=== PATIENT | female | born 1940 | race Caucasian/White ===

== ENCOUNTER 2022-10-21 10:39 | Outpatient (REF) | payer MEDICARE, SELFPAY ==
[2022-10-21 13:50] LABS: MANUAL DIFF FLAG NO
[2022-10-21 14:06] LABS: Basophils Percent Auto 0.6 % (0-2); Eosinophils Absolute Auto 0.2 X10*3/uL (0.0-0.4); Eosinophils Percent Auto 3.5 % (0-4); Hematocrit 42.5 % (37.0-47.0); Hemoglobin 14.3 g/dl (12.0-16.0); Imm Gran Abs Auto 0.03 X10*3/uL (0.00-0.03); Imm Gran Pct Auto 0.6 % (0.0-0.4); Lymphocytes Absolute Auto 1.2 X10*3/uL (1.2-4.9); Lymphocytes Percent Auto 22.5 % (20-40); Mean Corpuscular HGB Conc 33.6 g/dl (31.0-35.0); Mean Corpuscular Hemoglobin 32.9 pg (27.0-33.0); Mean Corpuscular Volume 97.9 fL (80.0-98.0); Mean Platelet Volume 10.5 fL (9.4-12.3); Monocytes Absolute Auto 0.4 X10*3/uL (0.1-1.2); Monocytes Percent Auto 7.8 % (2-11); Neutrophils Absolute Auto 3.3 x10*3/uL (2.0-8.3); Platelet Count 273 X10*3/uL (160-400); Red Blood Count 4.34 X10*6/uL (4.20-5.50); White Blood Count 5.1 X10*3/uL (4.8-10.8)
[2022-10-21 14:37] LABS: Alanine Aminotransferase 15 U/L (0-31); Alkaline Phosphatase 76 U/L (39-117); Anion Gap 14 (12-20); Aspartate Amino Transferase 21 U/L (5-31); Bilirubin Total 1.2 mg/dL (0.0-1.0); Blood Urea Nitrogen 21 mg/dL (9-16); Calcium 9.6 mg/dL (8.4-10.2); Carbon Dioxide 28 mmol/L (22-29); Chloride 104 mmol/L (96-108); Cholesterol 221 mg/dL; Estimated Glomerular Filt Rate > 60; Glucose Fasting 107 mg/dL (60-99); HDL Cholesterol 78 mg/dL; LDL Cholesterol Calculated 131 mg/dl; Potassium 3.7 mmol/L (3.3-5.1); Sodium 142 mmol/L (135-145); Total Protein 6.6 g/dL (6.5-8.0); Triglycerides 62 mg/dL
== END 2022-10-21 10:40 | disposition home or self-care (01) ==
LOC: HO.MANLDS 10:39
PROVIDERS: Visit Provider Physician Assistant
DX: I10 Essential (primary) hypertension (principal)
CPT/HCPCS: 36415; 80053; 80061; 85025

== ENCOUNTER 2023-10-28 08:46 | Outpatient (REF) | payer MEDICARE, SELFPAY ==
[2023-10-28 13:12] LABS: MANUAL DIFF FLAG NO
[2023-10-28 13:40] LABS: Basophils Percent Auto 0.3 % (0-2); Eosinophils Absolute Auto 0.4 X10*3/uL (0.0-0.4); Eosinophils Percent Auto 5.1 % (0-4); Hematocrit 44.2 % (37.0-47.0); Hemoglobin 14.4 g/dl (12.0-16.0); Imm Gran Abs Auto 0.02 X10*3/uL (0.00-0.03); Imm Gran Pct Auto 0.3 % (0.0-0.4); Lymphocytes Percent Auto 14.5 % (20-40); Mean Corpuscular HGB Conc 32.6 g/dl (31.0-35.0); Mean Corpuscular Hemoglobin 32.4 pg (27.0-33.0); Mean Corpuscular Volume 99.3 fL (80.0-98.0); Mean Platelet Volume 10.2 fL (9.4-12.3); Monocytes Absolute Auto 0.5 X10*3/uL (0.1-1.2); Monocytes Percent Auto 7.6 % (2-11); Neutrophils Absolute Auto 5.1 x10*3/uL (2.0-8.3); Neutrophils Percent Auto 72.2 % (45-73); Platelet Count 288 X10*3/uL (160-400); Red Blood Count 4.45 X10*6/uL (4.20-5.50); Red Cell Distribution Width 12.6 % (11.0-16.0); White Blood Count 7.1 X10*3/uL (4.8-10.8)
[2023-10-28 14:05] LABS: Alanine Aminotransferase 18 U/L (0-31); Albumin Level 4.1 g/dL (3.5-5.0); Alkaline Phosphatase 75 U/L (39-117); Anion Gap 12 (12-20); Aspartate Amino Transferase 23 U/L (5-31); Bilirubin Total 0.7 mg/dL (0.0-1.0); Blood Urea Nitrogen 15 mg/dL (9-16); Calcium 9.6 mg/dL (8.4-10.2); Carbon Dioxide 30 mmol/L (22-29); Chloride 105 mmol/L (96-108); Cholesterol 214 mg/dL (<200); Estimated Glomerular Filt Rate > 60; Glucose Random 95 mg/dL (60-115); HDL Cholesterol 90 mg/dL (>40); LDL Cholesterol Calculated 112 mg/dL (<100); Potassium 3.9 mmol/L (3.3-5.1); Sodium 143 mmol/L (135-145); Total Protein 7.1 g/dL (6.5-8.0); Triglycerides 64 mg/dL (<150)
== END 2023-10-28 08:47 | disposition home or self-care (01) ==
LOC: HO.MANLDS 08:46
PROVIDERS: Visit Provider Physician Assistant
DX: I10 Essential (primary) hypertension (principal)
CPT/HCPCS: 36415; 80053; 80061; 85025

== ENCOUNTER 2023-12-24 09:57 | Outpatient (REF) | payer MEDICARE, SELFPAY | END 2023-12-24 09:58 | disposition home or self-care (01) | LOC: HO.LNP 09:57 | PROVIDERS: Visit Provider Physician Assistant | DX: Z13.89 Encounter for screening for other disorder (principal) ==

== ENCOUNTER 2023-12-24 19:47 | Outpatient (REF) | payer MEDICARE, SELFPAY | END 2023-12-24 19:48 | disposition home or self-care (01) | LOC: HO.LNP 19:47 | PROVIDERS: Visit Provider Physician Assistant | DX: L02.818 Cutaneous abscess of other sites (principal) | CPT/HCPCS: 87070; 87205 ==

== ENCOUNTER 2024-12-15 09:27 | Outpatient (REF) | payer MEDICARE, SELFPAY ==
--- OUTSIDE RECORDS SUMMARY | 2024-12-15 10:11 | XMS_ITS | Continuity of Care Document ---
Author Organization [place] - [facility], [facility] Address [address] [place] [address] [place] [address] Assessment No assessment recorded. Plan of Treatment Reminders Order Date Submit Date Provider Last Modified By Organization Details Last Modified Time Details Appointments FOLLOW UP 15 2024 09:00A M JADON HANSEN Not available Not available Not available Lab uric acid, serum or plasma 2024 025 [facility], [address] [place] [address], [place], [address], 12/13/2024 10:57:06 CMP, serum or plasma 2024 025 [facility], [address] [place] [address], [place], [address], 12/13/2024 10:57:06 CBC w/ auto diff 2024 025 [facility], [address] [place] [address], [place], [address], 12/13/2024 10:57:06 Referral None recorded . Procedures None recorded . Surgeries None recorded . Imaging XR, foot, 3 or more view 2024 025 [facility], [facility] [place], [address], 12/13/2024 13:55:27 Medication Orders None recorded . Patient TargetsNo targets recorded. Patient InstructionsNo instructions recorded. Reason for Referral None Reported. Problems Name Problem SNOMED Code Status Onset Date Resolution Date Notes Provider Name and Address Organization Details Recorded Time Essential hypertens ion 53148570 Active 2021 Not Available [facility] 3 10:52:07 Rupture of rotator cuff of right shoulder 529023016109 17778 Active 2021 right Not Available [facility] 3 10:52:07 Diverticu losis of colon 943088136 Active 2021 only one flare up Not Available [facility] 3 10:52:07 Vitamin deficienc y 47644693 Active 2021 Not Available [facility] 3 10:52:07 Bunion 954291751 Active 2021 Not Available [facility] 3 10:52:07 Hammer toe 162279819 Active 2021 Not Available [facility] 3 10:52:07 Hammer toe 434762273 Active 2021 Not Available [facility] 3 10:52:07 Pain in right thumb 092740420479 9102 Active 2021 Not Available [facility] 3 10:52:07 Hordeolum externum of upper eyelid of right eye 264276764048 100 Active 2021 Not Available [facility] 3 10:52:07 Fracture of multiple ribs 7873318 Active 2022 JADON HANSEN [address] [place], [address], [facility] 3 15:24:07 Elderly fall 096600855 Active 2022 JADON HANSEN [address] [place], [address], [facility] 3 15:24:53 Onycholys is due to fungal infection of nail 745224337 Active 2023 JADON HANSEN [address] [place], [address], [facility] 4 09:26:31 Acquired hammer toe of right foot 433328456515 9105 Active 2023 JADON HANSEN [address], [place], , [facility] 4 09:30:09 Inflammat ion of clitoris 412383856 Active 2023 JADON HANSEN [address] [place] [address], , [facility] 4 09:50:18 Phimosis clitoridi s 863745384 Active 2023 JADON HANSEN [address] [place] [address], , [facility] 4 09:50:44 Abscess of skin and/or subcutane ous tissue 96360845 Active 2023 JADON HANSEN [address] [place] [address], , [facility] 4 09:52:43 Pain in left thumb 086078691263 9100 Active 2023 JADON HANSEN [address] [place] [address], , [facility] 4 09:40:13 Constipat ion 08054961 Active 2024 JADON HANSEN [address] [place] [address], , [facility] 5 09:16:43 Pain in right foot 976747984180 107 Active 2024 JADON HANSEN [address] [place] [address], , [facility] 5 10:47:42 Bunion 513148966 Active 2024 JADON HANSEN [address] [place] [address], , [facility] 5 10:51:41 Osteoarth ritis 907163395 Active 2024 JADON HANSEN [address] [place] [address], , [facility] 5 10:51:51 Problem Notes None recorded. Medical Equipment None Reported. Allergies Allergen ID Allergen Name Allergen Category Reaction Reaction Severity Criticality Documentation Date Start Date Code Code System Note Provider Name and Address Organization Details Recorded Time 6042 Substance with sulfonami de structure and antibacte rial mechanism of action (substanc e) medicatio n Not available Not available Not available 05/08/2022 27268 8003 SNOMED HIVES Gali reid [facility] 2 10:33:54 6043 procaine hydrochlo ride medicatio n swelling Not available Not available 05/08/2022 74000 8 RxNorm Gali reid [facility] 2 10:33:33 6044 meloxicam medicatio n rash Not available Not available 05/08/2022 74290 RxNorm Gali De La Garza [facility] 2 10:33:43 7289 Voltaren medicatio n Not available Not available Not available 04/28/202335711 6 RxNorm rash JADON HANSEN [address] [place] [address], [address] [place] [address] [facility] 3 09:11:43 Medications Name Sig Start Date Stop Date Status Note LastModified by Organization Details LastModified Time prednisone 20 mg tablet TAKE 1 TABLET BY MOUTH EVERY DAY FOR 10 DAYS 01/26 completed Not Available Not Available Not Available atenolol 25 mg tablet TAKE 1 AND 1/2 TABLETS BY MOUTH EVERY DAY active Not Available Not Available No t Available terbinafine HCl 250 mg tablet TAKE 1 TABLET BY MOUTH EVERY DAY FOR 30 DAYS active Not Available Not Available No t Available cephalexin 500 mg capsule TAKE 1 CAPSULE BY MOUTH EVERY 6 HOURS FOR 10 DAYS 01/26 completed Not Available Not Available Not Available erythromyci n 5 mg/gram (0.5 %) eye ointment APPLY 1 CM RIBBON INTO THE LOWER CONJUNCTI ROCÍO SAC(S) IN THE AFFECTED EYE(S) 3 TIMES PER DAY 10/30 completed Not Available Not Available Not Available clotrimazol e-betametha sone 1 %-0.05 % topical cream APPLY TO AFFECTED AREA TWICE A DAY FOR 2 WEEKS TOPICALLY IN THE MORNING AND EVENING 12/15 completed Not Available Not Available Not Available ibuprofen 400 mg tablet TAKE 1 TABLET BY MOUTH THREE TIMES A DAY WITH FOOD OR MILK 01/26 completed Not Available Not Available Not Available hydrochloro thiazide 25 mg tablet TAKE 1 TABLET BY MOUTH EVERY DAY active Not Available Not Available No t Available gabapentin 100 mg capsule TAKE 1 CAPSULE BY MOUTH THREE TIMES A DAY 10/13 completed Not Available Not Available Not Available oxycodone 5 mg tablet TAKE 1 TABLET BY MOUTH EVERY 6 HOURS NEEDED FOR SEVERE PAIN 10/26 completed Not Available Not Available Not Available nitrofurant oin monohydrate /macrocryst als 100 mg capsule TAKE 1 CAPSULE BY MOUTH 2 TIMES A DAY FOR 7 DAYS. TAKE WITH FOOD, YOGURT, PROBIOTIC S. FINISH ALL. 05/08 completed Not Available Not Available Not Available magnesium daily active OTC Not Available Not Deb ilable Not Available multivitami n active Not Available Not Available Not Available Eliquis 5 mg tablet 01/26 completed Not Available Not Available Not Available aspirin 81 mg capsule Take 1 capsule every day by oral route. 01/26 completed Not Available Not Available Not Available Vitals Date Recorded Body height Body mass index (BMI) Body weight Heart rate Oxygen saturation Oxygen saturation in Arterial blood by Pulse oximetry Systolic blood pressure Diastolic blood pressure Provider Name and Address Organization Details Last Updated DateTime 5 149.86 cm 27.6 kg/m2 39718.4 4 g 56 /min 98 % 98 % 144 mm[Hg] 92 mm[Hg] Danae Vega [facility] 5 10:33:47 Social History Question Answer Notes LastModified by Organizat ion Details LastModified Time Tobacco Smoking Status Never Smoker Gali reid [facility] 05/08/2022 10:30:06 What Was The Date Of Your Most Recent Tobacco Screening? 12/13/2024 [email or web address] Information not available 12/13/2024 Do You Or Have You Ever Used Any Other Forms Of Tobacco Or Nicotine? No Information not available 10/30/2022 Sex: Unknown Functional Status None recorded. Mental Status None recorded. Family History Nothing Reported. Medical History No medical history recorded. Gynecological HistoryNo gynecological history recorded. Obstetrics History GPAL:G 0 P 0 0 0 0 Immunizations Vaccine Type Date Status Note Provider Nam e and Address Organization Details Recorded Time COVID-19, mRNA, LNP-S, PF, 30 mcg/0.3 mL dose 09/21/19 [facility] 08:07:17 COVID-19, mRNA, LNP-S, PF, 30 mcg/0.3 mL dose 10/14/19 [facility] 08:07:24 Influenza, split virus, quadrivalent, preservative 08/20/19 22 [facility] 05[facility]22 08:07:39 Influenza, split virus, quadrivalent, preservative 04/27/20 20 [facility] 05[facility]08[facility]22 08:07:46 Influenza, split virus, quadrivalent, preservative 06/02/20 19 completed Gali De La Garza [facility] 05/08/2022 08:07:55 pneumococcal polysaccharide PPV23 05/09/20 08 completed Gali De La Garza [facility] 05/08/2022 08:08:28 Pneumococcal conjugate PCV 13 12/07/19 15 completed Gali De La Garza [facility] 05/08/2022 08:08:53 Td (adult) 04/17/20 10 completed Gali De La Garza [facility] 05/08/2022 08:09:38 Tdap 10/31/19 17 completed Gali De La Garza [facility] 05/08/2022 08:09:53 influenza, intradermal, quadrivalent, preservative free 06/06/20 22 completed Rylie Gardner [facility] 06/10/2022 09:28:17 influenza, unspecified formulation 04/24/20 23 completed Savanna Almanza [facility] 04/28/2023 08:16:56 influenza, unspecified formulation 04/22/20 24 completed Danae Vega [facility] 04/26/2024 08:03:09 Respiratory syncytial virus (RSV) MAB, unspecified 04/22/20 24 completed Danae Vega [facility] 04/26/2024 08:03:16 Respiratory syncytial virus (RSV) MAB, unspecified 04/13/20 24 completed JADON HANSEN [address] [place], [address], [facility] 10/13/2024 09:14:07 influenza, unspecified formulation 04/13/20 completed JADON HANSEN [address] [place], [address], [facility] 10/13/2024 09:14:26 Past Encounters Encounter ID Performer Location Encounter Start Date Encounter Closed Date Diagnosis/Indication Diagnosis SNOMED-CT Code Diagnosis ICD10 Code Diagnosis Note [id number] Leo Evangelista [facility] [address] [address] 12/13/2024 10:23:27 12/13/2024 13:55:26 Depression screening 034056242 Z13.31 negative Pain in right foot 49400 85195 14271 M79.671 will fu with XR and lab work Bunion 901785388 M21.61 1 stable Osteoarthritis 270701722 M15.0 probably a combinatio n of the OA and the bunion causing more paincannot r/o a fx given the severity of the bunion and the weight distributi on of the foot Health Concerns Section Related Observation LastModified by Organization Detai ls LastModified Time None Recorded Concern Status LastModified by Organization Details LastModified Time None Recorded Payers Encounter Date Sequence Insurance Name Policy Number Policy Moise Covered Member ID Moise Member ID Guarantor Name 12/13/2024 2 [facility] Irish Castellanos [id number] Irish Castellanos 12/13/2024 1 [place]: [employer] Irish Castellanos [id number] Irish Castellanos Notes Date Note Type Note Provider Name a nd Address Organization Details Recorded Time 12/13/2024 text/html f/u med check the patient reports that she is having right foot pain and ankle painthe patient has a hx of arthritis, she noticed a few days ago that it started to hurt more than usualpain with walking, putting weight on itthe patient reports that ulcer is all cleared up and the toe fungus is improving she has hx of pretty sig bunion and hammer toes causing sig lynne deformity of the bone recommended updated imaging and check for uric acid build uppt agrees, given the paper orders and will go tomorrow JADON HANSEN [address] [place] [address], [place], [address], [facility] 12/13/2024 10:56:47 OBGyn Episode No OBEpisode recorded.
--- OUTSIDE RECORDS SUMMARY | 2024-12-15 10:12 | XMS_ITS | Data Portability ---
Author Organization [facility] Home Service Address [address] [place] [address] Assessment No assessment recorded. Plan of Treatment Reminders Order Date Submit Date Provider Last Modified By Organization Details Last Modified Time Details Appointments FOLLOW UP 15 2024 09:00A M JADON HANSEN Not available Not available Not available Lab uric acid, serum or plasma 2024 025 [facility], [address] [place] [address], [id number], 12/13/2024 10:57:06 CMP, serum or plasma 2024 025 [facility], [address] [place] [address], [place], [address], 12/13/2024 10:57:06 CBC w/ auto diff 2024 025 [facility], [address] [place] [address], [id number], 12/13/2024 10:57:06 Referral None recorded. Procedures None recorded. Surgeries None recorded. Imaging XR, foot, 3 or more view 2024 025 [email or web address] [facility], [address] [place], [address], 12/13/2024 13:55:27 XR, hand, 3 or more view 2023 024 [email or web address] [facility], [address] [place], [address], 05/04/2024 14:43:08 Medication Orders hydrochlo rothiazid e 25 mg tablet 2023 024 [facility]acy #2024, [address] [place], [address], 07/27/2024 09:36:42 atenolol 25 mg tablet 2023 024 [facility] #[id number], [address] [place], [address], 07/27/2024 09:36:42 Patient TargetsNo targets recorded. Patient InstructionsNo instructions recorded. Reason for Referral None Reported. Results Created Date Observation Date Name Description Value Unit Range Abnormal Flag Note LastModifiedBy Organization Detail LastModifiedTime 05/05/20 24 05/05/2024 XR, hand No observ ation record ed. [email or web address] Not Available 2023 14:13:46 Result Notes None recorded. Problems Name Problem SNOMED Code Status Onset Date Resolution Date Notes Provider Name and Address Organization Details Recorded Time Essential hypertens ion 15346287 Active 2021 Not Available [facility] 3 10:52:07 Rupture of rotator cuff of right shoulder 472972414505 67591 Active 2021 right Not Available [facility] 3 10:52:07 Diverticu losis of colon 311631298 Active 2021 only one flare up Not Available [facility] 3 10:52:07 Vitamin deficienc y 87763065 Active 2021 Not Available [facility] 3 10:52:07 Bunion 226731803 Active 2021 Not Available [facility] 3 10:52:07 Hammer toe 030743520 Active 2021 Not Available [facility] 3 10:52:07 Hammer toe 945666368 Active 2021 Not Available [facility] 3 10:52:07 Pain in right thumb 637740313409 9102 Active 2021 Not Available [facility] 3 10:52:07 Hordeolum externum of upper eyelid of right eye 340941098669 100 Active 2021 Not Available [facility] 3 10:52:07 Fracture of multiple ribs 7940593 Active 2022 JADON HANSEN [address] [place] [address], [address], [facility] 3 15:24:07 Elderly fall 381504812 Active 2022 JADON HANSEN [address] [place] [address], [address], [facility] 3 15:24:53 Onycholys is due to fungal infection of nail 315583576 Active 2023 JADON HANSEN [address] [place] [address], [address], [facility] 4 09:26:31 Acquired hammer toe of right foot 500040553989 9105 Active 2023 JADON HANSEN [address] [place] [address], [address], [facility] 4 09:30:09 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 JADON HANSEN [address] [place] [address], [address], [facility] 4 09:50:18 Phimosis clitoridi s 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 Active 2023 JADON HANSEN [address] [place] [address], [address], [facility] 4 09:50:44 Abscess of skin and/or subcutane ous tissue 83415420 Active 2023 JADON HANSEN [address] [place] [address], [address], [facility] 4 09:52:43 Pain in left thumb 398902380513 9100 Active 2023 JADON HANSEN [address] [place] [address], [address], [facility] 4 09:40:13 Constipat ion 17681922 Active 2024 JADON HANSEN [address] [place], [address], [facility] 5 09:16:43 Pain in right foot 825626014352 107 Active 2024 JADON HANSEN [address] [place], [address], [facility] 5 10:47:42 Bunion 093695019 Active 2024 JADON HANSEN [address] [place] [address], [address], [facility] 5 10:51:41 Osteoarth ritis 934795362 Active 2024 JADON HANSEN [address] [place] [address], [address], [facility] 5 10:51:51 Problem Notes None recorded. Procedures Surgical History None recorded. Imaging Results Imaging Date Name Status LastModified by Organiz ation Details LastModified Time 05/05/2024 XR, hand completed Information no t available 06/04/2024 14:13:46 Procedure Notes None recorded. Medical Equipment None Reported. Allergies Allergen ID Allergen Name Allergen Category Reaction Reaction Severity Criticality Documentation Date Start Date Code Code System Note Provider Name and Address Organization Details Recorded Time 6042 Substance with sulfonami de structure and antibacte rial mechanism of action (substanc e) medicatio n Not available Not available Not available 05/08/2022 85503 8003 [facility]ED [facility] 10:[facility]54 6043 procaine hydrochlo ride medicatio n swelling Not available Not available 05/08/2022 20543 8 [facility] 2 10:33:33 6044 meloxicam medicatio n rash Not available Not available 05/08/2022 00568 RxNorm Gali reid [facility] 2 10:33:43 7289 Volttraceyn medicatio n Not available Not available Not available 04/28/2023 6 RxNorm rash JADON HANSEN [address] [place], [address] , [facility] 3 09:11:43 Medications Name Sig [...] and Address Organization Details Last Updated DateTime 4 149.86 cm 26.7 kg/m2 66326.1 9 g 63 /min 98 % 98 % 140 mm[Hg] 88 mm[Hg] JADON HANSEN [address] [place] [address], [address] [place] [address] [facility] 4 09:28:40 Date Recorded Body height Body mass index (BMI) Body weight Heart rate Oxygen saturation Oxygen saturation in Arterial blood by Pulse oximetry Systolic blood pressure Diastolic blood pressure Provider Name and Address Organization Details Last Updated DateTime 4 149.86 cm 26.9 kg/m2 65238.7 9 g 61 /min 98 % 98 % 132 mm[Hg] 88 mm[Hg] Danae Vega [facility] 4 09:31:44 Date Recorded Body height Body mass index (BMI) Body weight Heart rate Oxygen saturation Oxygen saturation in Arterial blood by Pulse oximetry Systolic blood pressure Diastolic blood pressure Provider Name and Address Organization Details Last Updated DateTime 4 149.86 cm 27.1 kg/m2 73019.3 8 g 66 /min 97 % 97 % 148 mm[Hg] 80 mm[Hg] Yessenia Boone [facility] 4 09:27:52 Date Recorded Body height Body mass index (BMI) Body weight Heart rate Oxygen saturation Oxygen saturation in Arterial blood by Pulse oximetry Systolic blood pressure Diastolic blood pressure Provider Name and Address Organization Details Last Updated DateTime 5 149.86 cm 27 kg/m2 83054.6 6 g 66 /min 98 % 98 % 124 mm[Hg] 72 mm[Hg] Desmond Garcia [facility] 5 09:07:35 Date Recorded Body height Body mass index (BMI) Body weight Heart rate Oxygen saturation Oxygen saturation in Arterial blood by Pulse oximetry Systolic blood pressure Diastolic blood pressure Provider Name and Address Organization Details Last Updated DateTime 5 149.86 cm 27.6 kg/m2 62471.4 4 g 56 /min 98 % 98 % 144 mm[Hg] 92 mm[Hg] Danae Vega [facility] 5 10:33:47 Social History Question Answer Notes LastModified by Organizat ion Details LastModified Time Tobacco Smoking Status Never Smoker Gali reid [facility] 05/08/2022 10:30:06 What Was The Date Of Your Most Recent Tobacco Screening? 12/13/2024 Information not available 12/13/2024 Do You Or Have You Ever Used Any Other Forms Of Tobacco Or Nicotine? No [email or web address] Information not available 10/30/2022 Sex: Unknown Functional [...] mcg/0.3 mL dose 09/21/19 21 completed Gali reid [facility] 05/08/2022 08:07:17 COVID-19, mRNA, LNP-S, PF, 30 mcg/0.3 mL dose 10/14/19 21 completed Gali reid [facility] 05/08/2022 08:07:24 Influenza, split virus, quadrivalent, preservative 08/20/19 22 completed Gali reid [facility] 05/08/2022 08:07:39 Influenza, split virus, quadrivalent, preservative 04/27/20 20 completed Gali reid [facility] 05/08/2022 08:07:46 Influenza, split virus, quadrivalent, preservative 06/02/20 19 completed Gali reid [facility] 05/08/2022 08:07:55 pneumococcal polysaccharide PPV23 05/09/20 08 [facility]22 08:08:28 Pneumococcal conjugate PCV 13 12/07/19 15 [facility]/08[facility]2022 08:08:53 Td (adult) 04/17/20 10 [facility] 05/08/2022 08:09:38 Tdap 10/31/19 17 completed [facility] 05/08/2022 08:09:53 influenza, intradermal, quadrivalent, preservative free 06/06/20 22 [facility]10/2022 09:28:17 influenza, unspecified formulation 04/24/20 23 completed Savanna Almanza [facility] 04/28/2023 08:16:56 influenza, unspecified formulation 04/22/20 24 completed [facility] 04/26/2024 08:03:09 Respiratory syncytial virus (RSV) MAB, unspecified 04/22/20 24 completed [facility] 04/26/2024 08:03:16 Respiratory syncytial virus (RSV) MAB, unspecified 04/13/20 24 completed JADON HANSEN [address] [place] [address], [address], [facility] 10/13/2024 09:14:07 influenza, unspecified formulation 04/13/20 24 completed JADON HANSEN [address] [place] [address], [address], [facility] 10/13/2024 09:14:26 Past Encounters Encounter ID Performer Location Encounter Start Date Encounter Closed Date Diagnosis/Indication Diagnosis SNOMED-CT Code Diagnosis ICD10 Code Diagnosis Note [id number] Leo Evangelista DO [facility] [address] [facility],[place] [address] 05/08/2022 10:23:00 05/08/2022 16:00:01 Essential hypertension 88163604 I10 the patient needs refillsHTN is stable Diverticul osis of colon 475832726 K57.30 stable Rupture of rotator cuff of right shoulder 4953098689 9332889 M75.111 doing PT Vitamin deficiency 73664 002 E56.9 stable Bunion 671852212 M21.61 9 stable Hammer toe 881364126 M20 .40 stable Pain in right thumb 1076 610344 749897 M79.644 will fu with hand surgeon referral to previous surgeon [id number] Leo Evangelista [facility] [address] [facility] [address] [address] 10/30/2022 09:24:48 10/30/2022 10:59:12 Essential hypertension 11078527 I10 all set with refillsHTN is stable with recheck Pain in right thumb 1076 479415 412733 M79.644 can also try diclofenac gel on her thumbworke d really well for her foot [id number] Leo Evangelista [facility] [address] [facility] [address] [address] 04/28/2023 08:57:54 04/28/2023 10:13:54 Essential hypertension 72404472 I10 all set with refillsHTN is stable with recheck Vitamin deficiency 30096 002 E56.9 stable [id number] Leo Evangelista [facility] [address] [facility] [address] [address] 06/02/2023 14:56:05 06/02/2023 16:50:14 Fracture of multiple ribs 0122246 S22.43XD is not needing the oxycodone Elderly fall 315940742 R 29.6 caught on her foot [id number] Leo Evangelista [facility] [address] [facility] [address] [address] 10/27/2023 09:10:21 10/27/2023 09:47:16 Onycholysis due to fungal infection of nail 205423582 L60.1 will set up with dual topical and oral treatment Acquired h ammer toe of right foot 7070091283 175977 M20.41 will let me know if she would 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 [address] 12/16/2023 14:21:38 12/17/2023 09:39:53 Depression screening 453585792 Z13.31 stable Essential hypertension 94113070 I10 all set with refillsHTN is stable with recheck [id number] Leo Evangelista [facility] [address] [facility] [address] [address] 12/24/2023 09:22:19 12/24/2023 13:49:23 Inflammation of clitoris 332274767 N76.2 fu friday for recheck Phimosis clitoridis 1098 84427 N90.89 short course, knows about effects on BP Abscess of skin and/or subcutaneous tissue 44092808 L02.818 will start on abx and prednisone short course of sudafed for the swelling of her clitoris and send out wound culture [id number] Leo Evangelista [facility] [address],[place] [address] 12/26/2023 13:53:56 12/29/2023 13:29:17 Abscess of skin and/or subcutaneous tissue 86495485 L02.818 improving Phimosis clitoridis 1098 65003 N90.89 improving [id number] Leo Evangelista [facility] [address] [facility] [address] 01/27/2024 09:22:13 01/27/2024 10:08:41 Depression screening 034087504 Z13.31 stable At low risk for fall 439 238498 Z91.81 low risk factor Essential hypertension 99777403 I10 stable with recheck [id number] Leo Evangelista [facility] [address] [facility] [address] [address] 05/04/2024 09:22:30 05/04/2024 14:43:08 Pain in left thumb 7499862752 347401 M79.645 still has deformity from the fall to her thumb Essential hypertension 56835267 I10 stable with recheck [id number] Leo Evangelista [facility] [address] [facility] [address] [address] 07/27/2024 09:22:08 07/27/2024 09:53:34 Pain in left thumb 5654953285 804054 M79.645 stable, improving Essential hypertension 49878161 I10 stable with recheck, stable at home [id number] Leo Evangelista [facility] [address] [facility] [address],[place] [address] 10/13/2024 08:57:20 10/13/2024 09:41:54 Essential hypertension 35995171 I10 stable with recheck, stable at home Constipation 60340354 K5 9.01 resolved Depression screening 171 440910 Z13.31 negative [id number] Leo Evangelisat [facility] [address] [facility] [address] [address] 12/13/2024 10:23:27 12/13/2024 13:55:26 Depression screening 762777289 Z13.31 negative Pain in right foot 69943 35982 28096 M79.671 will fu with XR and lab work Bunion 521828013 M21.61 1 stable Osteoarthritis 757990265 M15.0 probably a combinatio n of the OA and the bunion causing more paincannot r/o a fx given the severity of the bunion and the weight distributi on of the foot Health Concerns Section Related Observation LastModified by Organization Detai ls LastModified Time None Recorded Concern Status LastModified by Organization Details LastModified Time None Recorded Advance Directives Directive None Recorded Payers Encounter Date Sequence Insurance Name Policy Number Policy Moise Covered Member ID Moise Member ID Guarantor Name 01/27/[address] [facility] [facility] Irish Castellanos [id number] Irish Castellanos 01/27/2024 1 [place] [facility] Irish Castellanos [id number] 06 Irish Castellanos 05/04/2024 2 [place] [facility] Irish Zahraaynski [id number] Irish Malczynski 05/04/2024 1 [place] [facility] Irish L Malczynski [id number] 06 Irish Malczynski 07/27/2024 2 [place] [facility] Irish Maljohnynski [id number] Irish Malczynski 07/27/2024 1 [place] [facility] Irish L Malczynski [id number] 06 Irish Malczynski 10/13/2024 2 [place] [facility] Irish Rajiski [id number] Irish Maljohnynski 10/13/2024 1 [place] [facility] Irish L Malczynski [id number] 06 Irish Maljohnynski 12/13/2024 2 [place] [facility] Irish Rajiski [id number] Irish Malczynski 12/13/2024 1 [place] [facility] Irish L Maljohnynski [id number] 06 Irish Zahraaynski Notes Date Note Type Note Provider Name a tn Address Organization Details Recorded Time 4 text/html 3 mo f/u the patient is here today for routine f/uthe patient reports she is doing well the patient can d/c the aspirin, was started on it by her previous doctor, does not have a reason to be on it at this [id number] was a 4, no significant heart issues or defectsno h/x of atrial fibrillation having a lot of bruising, agreed to d/c the ASA feet are doing better; continue to do the vinegar soaks for the feet no recent falls or issues with balance hands feels better as well uses APAP PM for sleep which works well otherwise feeling well overall JADON HANSEN [address] [place] [address], [place], [address], [facility] 01/27/2024 09:46:18 4 text/html 3 mos f/u HTN: today in the office the patient BP is 132/88 L arm sittingthe patient is doing well on the BP medication with no side effects and no adjustment of their medications needed today at the appointmentwell-contro lled on medicationdenies chest pain, sob, ankle swelling, orthopnea, palpitations thumb looks deformed, like it was dislocated and never healed correctlydenies pain, does have reduced ROM with abduction and adduction of the thumb compared to her R thumbno numbness or tinglingno obvious weakness agreed to repeat XR will fu after XR JADON HANSEN [address] [place], [address], [facility] 05/04/2024 09:55:32 4 text/html 3 mos f/u the patient is taking her medication as prescribedno side effects with the medications the patient did cut herself peeling potatoesis healing fine, on the knuckle so it is taking longer to feel better the patient reports that she is doing well otherwise the patient reports that her stomach is fine, no recent flare ups BP is fine with recheck, 132/84 after 5 minutesBP is fine at home the patient is otherwise doing very wellno questions or concerns today JADON HANSEN [address] [place], [address], [facility] 07/27/2024 09:45:12 5 text/html 3 mos f/u the patient reports that she is having issues with constipationthe patient reports that usually very regular, uses prune juice, raisin branstarted using colace and she is back to normalrecommended continuing and increasing fluid intake probably related to her having COVID, she had a fever, probs just dehydrated HTN: today in the office the patient BP is 124/72 L arm sitting the patient is doing well on the BP medication with no side effects and no adjustment of their medications needed today at the appointment well-controlled on medication denies chest pain, sob, ankle swelling, orthopnea, palpitations the patient is all set on medication currently JADON HANSEN [address] [place], [address], [facility] 10/13/2024 09:19:35 5 text/html f/u med check the patient reports [...] orders and will go tomorrow JADON HANSEN [address] [place] [address], [place], [address], [facility] 12/13/2024 10:56:47 OBGyn Episode No OBEpisode recorded.
[2024-12-15 13:44] LABS: MANUAL DIFF FLAG NO
[2024-12-15 13:53] LABS: Basophils Percent Auto 0.5 % (0-2); Eosinophils Absolute Auto 0.2 X10*3/uL (0.0-0.4); Eosinophils Percent Auto 3.3 % (0-4); Hematocrit 42.2 % (37.0-47.0); Hemoglobin 13.7 g/dl (12.0-16.0); Imm Gran Abs Auto 0.01 X10*3/uL (0.00-0.03); Imm Gran Pct Auto 0.2 % (0.0-0.4); Lymphocytes Percent Auto 18.2 % (20-40); Mean Corpuscular HGB Conc 32.5 g/dl (31.0-35.0); Mean Corpuscular Hemoglobin 33.3 pg (27.0-33.0); Mean Corpuscular Volume 102.4 fL (80.0-98.0); Mean Platelet Volume 10.3 fL (9.4-12.3); Monocytes Absolute Auto 0.3 X10*3/uL (0.1-1.2); Monocytes Percent Auto 5.3 % (2-11); Neutrophils Percent Auto 72.5 % (45-73); Platelet Count 244 X10*3/uL (160-400); Red Blood Count 4.12 X10*6/uL (4.20-5.50); Red Cell Distribution Width 11.9 % (11.0-16.0); White Blood Count 5.5 X10*3/uL (4.8-10.8)
[2024-12-15 14:16] LABS: Alanine Aminotransferase 24 U/L (0-31); Albumin Level 4.2 g/dL (3.5-5.0); Anion Gap 15 (12-20); Aspartate Amino Transferase 31 U/L (5-31); Bilirubin Total 0.6 mg/dL (0.0-1.0); Blood Urea Nitrogen 25 mg/dL (9-16); Calcium 9.7 mg/dL (8.4-10.2); Carbon Dioxide 27 mmol/L (22-29); Chloride 104 mmol/L (96-108); Estimated Glomerular Filt Rate > 60; Glucose Random 139 mg/dL (60-115); Potassium 3.8 mmol/L (3.3-5.1); Sodium 142 mmol/L (135-145); Total Protein 6.9 g/dL (6.5-8.0); Uric Acid 7.6 mg/dL (2.4-5.7)
[2024-12-15 14:30] LABS: Alkaline Phosphatase 73 U/L (39-117)
== END 2024-12-15 09:28 | disposition home or self-care (01) ==
LOC: HO.MANLDS 09:27
PROVIDERS: Visit Provider Physician Assistant
DX: M79.671 Pain in right foot (principal)
CPT/HCPCS: 36415; 80053; 84550; 85025